=== PATIENT | male | born 1980 | race Caucasian/White ===

== ENCOUNTER 2022-06-20 01:38 | Emergency (ER) | payer OTHER, SELFPAY ==
[2022-06-20] VITALS (16 sets, daily range): BP systolic 107–150; BP diastolic 79–91; PULSE 81–92; RESP 16–18; TEMP 35.8; O2SAT 95–100
--- NOTE | ~2022-06-20 | CT_ITS ---
Non-contrast CT scan of the Abdomen and Pelvis Clinical indication: Left flank pain Technique: 2.5 mm axial scans were obtained through the abdomen and pelvis without intravenous or or al contrast. Dose reduction technique was used on this scan by utilizing automated exposure control a nd iterative reconstruction technique. The dose-length product (DLP) was 805.47 mGy-cm. Findings: Images through the lung bases reveal no abnormalities. Multiple bilateral nonobstructing renal stones are present. There is moderate left hydroureteronephro sis. There is a 5 mm stone at the distal left ureter, however the ureter itself measures 2 cm in diam eter dislocation (axial image 161). There is a 9 x 6 mm stone at the left UVJ, with Hounsfield units of 1800. There are several additional smaller stones also at the very distal left ureter/left UVJ abo ve the larger stone, measuring up to 4 mm in diameter each. The liver, spleen, pancreas, gallbladder, and adrenals appear normal. There is no aortic aneurysm. There is no evidence of bowel obstruction. Normal appendix. Images through the pelvis were performed. There is no evidence of ascites or lymphadenopathy. Punctat e stone noted within the right side of the urinary bladder. Prostate gland is mildly enlarged. Impression: Multiple stones in the distal left ureter/left UVJ, largest measuring 9 x 6 mm just at the left UVJ. Please see details above. Moderate left hydroureteronephrosis, with the ureter in particular being diffusely dilated. Multiple additional nonobstructing bilateral renal stones. Punctate urinary bladder stone. Reviewed, dictated and finalized at [facility]. Impression: Multiple stones in the distal left ureter/left UVJ, largest measuring 9 x 6 mm just at the left UVJ. Please see details above. Moderate left hydroureteronephrosis, with the ureter in particular being diffus cherrie dilated. Multiple additional nonobstructing bilateral renal stones. Punctate urinary bladder stone.
[2022-06-20 01:59] LABS: Basophils Percent Auto 0.4 % (0.2-1.2); Eosinophils Absolute Auto 0.2 K/mm3 (0-0.3); Eosinophils Percent Auto 1.7 % (0-4.4); Hematocrit 46.5 % (42.0-52.0); Hemoglobin 15.7 g/dL (14.0-18.0); Immature Granulocyte Absolute 0.03 K/mm3 (0.00-0.031); Immature Granulocyte Percent A 0.3 % (0-0.5); Lymphocytes Absolute Auto 2.65 K/mm3 (0.9-3.2); Lymphocytes Percent Auto 29.4 % (18.3-44.2); Mean Corpuscular HGB Conc 33.8 g/dl (32-36); Mean Corpuscular Volume 88.9 fl (80-100); Mean Platelet Volume 9.7 fl (7.4-10.4); Monocytes Absolute Auto 0.7 K/mm3 (0.1-0.6); Monocytes Percent Auto 7.9 % (2.6-8.5); Neutrophils Absolute Auto 5.4 K/mm3 (1.3-6.7); Neutrophils Percent Auto 60.3 % (45.5-73.1); Platelet Count Result 218 k/mm3 (150-375); Red Blood Count 5.23 M/mm3 (4.6-6.20); Red Cell Distribution Width 12.4 % (11.5-14.5)
[2022-06-20 02:04] LABS: Bacteria Urine None Seen /hpf; Non Pathogenic Casts 0-2; RBC Urine 21-50 /hpf (0-2); Squamous Epithelial Cell Urine None seen /hpf (Few)
[2022-06-20] MEDS: SODIUM CHLORIDE 0.9% IV 1,000 ML 999 ML IV CONT (02:35)
[2022-06-20] MEDS: ONDANSETRON INJ 4 MG/2 ML VIAL IV PUSH (02:35)
[2022-06-20] MEDS: HYDROmorphone HCL INJ (*CRX) 1 MG/ML SYR IV PUSH ×2 (02:36→03:52)
[2022-06-20 02:50] LABS: Appearance Urine Clear (Clear); Bilirubin Urine Negative (Negative); Blood Urine 2+ (Negative); Color Urine Yellow (Yellow); Glucose Urine UA Negative (Negative); Ketones Urine Negative (Negative); Leukocyte Esterase Ur Trace LEU/UL (Negative); Nitrate Urine Negative (Negative); Protein Urine Trace mg/dL (Negative); Specific Grav Ur 1.021 (1.001-1.035); Urobilinogen Urine 0.2 mg/dL (<2.0)
[2022-06-20 02:53] LABS: Add Urine Microscopic? YES
[2022-06-20 03:02] LABS: Alanine Aminotransferase 42 U/L (6-50); Albumin Level 4.8 g/dL (3.5-5.1); Alkaline Phosphatase 84 U/L (38-126); Anion Gap 6 mmol/L (8-16); Aspartate Amino Transferase 33 U/L (17-59); Bilirubin,Total 0.8 mg/dL (0.2-1.3); Blood Urea Nitrogen 17 mg/dL (9-20); Calcium 9.6 mg/dL (8.4-10.2); Carbon Dioxide 29 mmol/L (22-30); Chloride 105 mmol/L (98-107); Estimated CRCL calculation 96 ml/min; Estimated Glomerular Filt Rate > 60; Glucose 119 mg/dL (65-110); Potassium 3.8 mmol/L (3.4-5.0); Sodium 140 mmol/L (137-145)
--- NOTE | 2022-06-20 03:25 | ED.GENADULT ---
HPI - General Adult General Chief complaint: Urogenital-Male Stated complaint: In excrutiating pain from kidney stone Time Seen by Provider: 06/20/22 02:22 History of Present Illness HPI narrative: Patient 42-year-old gentleman who presents the emergency department with chief complaint of flank pain patient reports that he had lithotripsy done on the for a large stone. The patient states that tonight he started having worsening pain and reports it has been uncontrolled with p.o. pain medications at home. Patient reports he had some nausea with this the patient reports that its not improved by anything. Related Data Home Medications Medication Instructions Recorded Confirmed hydrocodone 5 mg-acetaminophen 325 tablet 06/20/22 mg tablet lisinopril 20 mg tablet 20 mg 06/20/22 metoprolol succinate 50 mg 50 mg PO 06/20/22 tablet,extended release 24 hr Allergies Allergy/AdvReac Type Severity Reaction Status Date / Time erythromycin base Allergy Unknown Verified 06/20/22 01:53 Review of Systems Review of Systems: A 10 system review of systems was completed on the patient and is negative except for what is stated in the HPI. Nursing and ancillary documentation was reviewed. Exam Narrative: GENERAL: Well-appearing, well-nourished, and in no acute distress. HEAD: Normocephalic, atraumatic. EYES: PERRLA and EOMI. ENT: Nares clear, no rhinorrhea or epistaxis. Mucous membranes moist. NECK: Supple. CHEST: Clear to auscultation. No respiratory distress. HEART: Regular rate and rhythm. No murmur heard. Normal peripheral pulses. ABDOMEN: Soft, nontender, nondistended, normal active bowel sounds. EXTREMITIES: Normal range of motion. No edema. SKIN: Warm, dry, no rash. NEURO: No focal deficits. Alert and oriented x3. PSYCH: Normal mood and affect. Course Vital Signs Vital signs: Vital Signs Temperature 35.8 C L 06/20/22 01:42 Pulse Rate 81 06/20/22 01:42 Respiratory Rate 18 06/20/22 01:42 Blood Pressure 150/91 H 06/20/22 01:42 Pulse Oximetry 100 06/20/22 01:42 Oxygen Delivery Room Air 06/20/22 01:42 Temperature 35.8 C L 06/20/22 01:42 Pulse Rate 92 06/20/22 03:39 Respiratory Rate 16 06/20/22 03:39 Blood Pressure 123/79 06/20/22 03:39 Pulse Oximetry 100 06/20/22 03:39 Oxygen Delivery Room Air 06/20/22 01:42 Medical Decision Making MDM Narrative Medical decision making narrative: Differential diagnosis includes UTI, obstructing stone, Plan showed evidence of a 0.9 cm UVJ stone with moderate to severe left hydronephrosis Patient's creatinine is 0.9 urinalysis showed 6-10 white blood cells and trace leukocyte esterase in the urine Urine culture has been sent. Patient will be given a prescription for [employer] prescription for Flomax and should follow-up with his urologist today or tomorrow Vital Signs Vital Signs: Vital Signs Temperature 35.8 C L 06/20/22 01:42 Pulse Rate 81 06/20/22 01:42 Respiratory Rate 18 06/20/22 01:42 Blood Pressure 150/91 H 06/20/22 01:42 Pulse Oximetry 100 06/20/22 01:42 Oxygen Delivery Room Air 06/20/22 01:42 Temperature 35.8 C L 06/20/22 01:42 Pulse Rate 92 06/20/22 03:39 Respiratory Rate 16 06/20/22 03:39 Blood Pressure 123/79 06/20/22 03:39 Pulse Oximetry 100 06/20/22 03:39 Oxygen Delivery Room Air 06/20/22 01:42 Lab Data 06/20/22 01:48 06/20/22 01:48 Labs: Lab Results 06/20/22 06/20/22 06/20/22 Range/Units 01:48 01:48 01:48 WBC 9.0 (4.5-10.0) K/mm3 RBC 5.23 (4.6-6.20) M/mm3 Hgb 15.7 (14.0-18.0) g/dL Hct 46.5 (42.0-52.0) % MCV 88.9 (80-100) fl MCH 30.0 (26-34) pg MCHC 33.8 (32-36) g/dl RDW 12.4 (11.5-14.5) % Plt Count 218 (150-375) k/mm3 MPV 9.7 (7.4-10.4) fl Immature Gran % (Auto) 0.3 (0-0.5) % Neut % (Auto) 60.3 (45.5-73.1) % Lymph % (Auto) 29.4 (18.3-44.2) % Camp % (Auto)
== END 2022-06-20 04:32 | disposition home or self-care (01) ==
PROVIDERS: Emergency Provider Emergency Medicine; PCP Family Medicine Sports Medicine
DX: N13.2 Hydronephrosis with renal and ureteral calculous obstruction (principal)
CPT/HCPCS: 36415; 74176; 80053; 81001; 85025; 87086; 87088; 96361; 96374; 96375; 96376; 99284; J1170; J2405; J7030

== ENCOUNTER 2024-09-03 13:09 | Emergency (ER) | payer BC, SELFPAY ==
[2024-09-03 13:25] VITALS: BP 126/76; PULSE 96; RESP 17; TEMP 36.7; O2SAT 99
--- NOTE | 2024-09-03 14:08 | ED.EAR ---
HPI - Ear Problem General Chief complaint: Ear Stated complaint: lt earache Time Seen by Provider: 09/03/24 13:40 Source: patient and RN notes reviewed Mode of arrival: ambulatory Limitations: no limitations History of Present Illness HPI Narrative: 44-year-old male does Express Care complaining of upper respiratory symptoms for approximately 4 days. Patient initially reported left sinus pressure, and mucopurulent discharge. Today patient woke up with worsening symptoms including worsening left sinus pressure, left ear pain, worsening discharge. Patient has been taking Zyrtec with some relief. Patient denies any fevers, body aches, chills, any other upper respiratory symptoms, chest pain, shortness of breath, nausea, vomiting, diarrhea, or any other symptoms. Related Data Home Medications ?Medication ?Instructions ?Recorded ?Confirmed ?Last Taken ?Type lisinopril 20 mg tablet 20 mg 06/20/22 Unknown History metoprolol succinate 50 mg 50 mg PO 06/20/22 Unknown History tablet,extended release 24 hr Allergies Allergy/AdvReac Type Severity Reaction Status Date / Time erythromycin base Allergy Unknown Verified 09/03/24 13:27 Review of Systems Review of Systems: CONSTITUTIONAL: Denies fever, chills, body aches, or sweats. EYES: Denies visual changes, redness, or discharge. ENT: Positive for rhinorrhea, congestion, otalgia. Negative for sore throat CARDIOVASCULAR: Denies chest pain, palpitations, or edema. RESPIRATORY: Negative for cough and dyspnea. GASTROINTESTINAL: Denies abdominal pain, nausea, vomiting, or diarrhea. GENITOURINARY: Denies dysuria or hematuria. SKIN: Denies rash or itching. MUSCULOSKELETAL: Denies back pain, joint pain, or myalgia. NEUROLOGIC: Denies headache, numbness, or weakness. PSYCHIATRIC: Denies anxiety or depression. All other systems reviewed are negative, except as documented in HPI. PMFSH Comments At the time of my signature, I reviewed and agree with the nursing past medical, surgical, social, and family history. There is no relevant family history pertinent to the patient complaint. Exam Narrative: GENERAL: This is a well-nourished, well-developed adult, in no apparent distress. They are non ill-appearing, nontoxic appearing. HEAD: normocephalic, atraumatic. EYES: Sclera clear/white. Vision is grossly intact. Conjunctiva normal bilaterally. Extraocular movements intact. EARS: External ears normal, auditory canals clear and without drainage, TMs without erythema or perforation. Hearing grossly intact. NOSE: External nose normal with no obvious nasal discharge, nasal turbinates erythematous with rhinorrhea. Left maxillary sinus tenderness to palpation. Transillumination of maxillary sinuses are abnormal. THROAT: Mucous membranes moist, posterior pharynx without redness or swelling, no exudate. Uvula is midline. Postnasal drip present. NECK: Neck supple, non-tender without lymphadenopathy, masses or thyromegaly. CARDIOVASCULAR: Regular rate and rhythm without murmurs, gallops, or rubs. RESPIRATORY: Clear to auscultation. Breath sounds equal bilaterally. No wheezes, rales, or rhonchi. SKIN: warm, Dry, intact with no suspicious lesions or rash, good texture and turgor. NEURO: awake, alert, and oriented to person, place and time. There were no obvious focal neurologic abnormalities. EXTREMITIES: No joint tenderness, effusion, or edema noted. BACK: Nontender without deformity. Course Course Emergency Course: Portions of this record may have been created with voice recognition software Level of Care: Express Care Visit Vital Signs Vital signs: Vital Signs Temperature 98.0 F 09/03/24 13:25 Pulse Rate 96 09/03/24 13:25 Respiratory Rate 17 09/03/24 13:25 Blood Pressure 126/76 09/03/24 13:25 Pulse Oximetry 99 09/03/24 13:25 Oxygen Delivery Room Air 09/03/24 13:25 Temperature 98.0 F 09/03/24 13:25 Pulse Rate 96 09/03/24 13:25 Respiratory Rate 17 09/03/24 13:25 Blood Pressure 126/76 09/03/24 13:25 Pulse Oximetry 99 09/03/24 13:25 Oxygen Delivery Room Air 09/03/24 13:25 Medical Decision Making MDM Narrative Medical decision making narrative: Given patient's suddenly worsened symptoms including left sinus pressure, mucopurulent discharge it is likely the patient has developed a bacterial sinusitis. Will treat with Augmentin. Discussed physical exam findings. Advised supportive measures and signs/symptoms to go to the ER. Pt is appropriate for outpt treatment and f/u. Differential Diagnosis Differential Diagnosis: Upper respiratory infection, viral infection, pharyngitis, sinusitis, your infection Vital Signs Vital Signs: Vital Signs Temperature 98.0 F 09/03/24 13:25 Pulse Rate 96 09/03/24 13:25 Respiratory Rate 17 09/03/24 13:25 Blood Pressure 126/76 09/03/24 13:25 Pulse Oximetry 99 09/03/24 13:25 Oxygen Delivery Room Air 09/03/24 13:25 Temperature 98.0 F 09/03/24 13:25 Pulse Rate 96 09/03/24 13:25 Respiratory Rate 17 09/03/24 13:25 Blood Pressure 126/76 09/03/24 13:25 Pulse Oximetry 99 09/03/24 13:25 Oxygen Delivery Room Air 09/03/24 13:25 Discharge Plan Discharge Clinical Impression: Sinusitis Qualifiers: Sinusitis location: unspecified location Chronicity: acute Recurrence: non-recurrent Qualified Code(s): J01.90 - Acute sinusitis, unspecified Patient Disposition: Home Condition: Stable Instructions: Antibiotic Form, Sinusitis (ED) Additional Instructions: Take the antibiotics as directed and complete the course even if you start to feel better. You may use a Neti pot saline rinse 3 times a day with lukewarm distilled water Continue to take Tylenol or Motrin for pain. Use a humidifier or vaporizer at night. Drink plenty of water. 8-10 glasses per day. Use flonase 2 times per day for 5 days then as needed Take mucinex 2 times per day and be sure to take with 8oz of water. Follow up with Primary provider in 3-5 days Please go to the ER if he develops any difficulty breathing, worsening symptoms, or any other concerns Patient Language: [place] Prescriptions: New amoxicillin-pot clavulanate 875-125 mg tablet 1 tablet PO Q12H 7 Days Qty: 14 0RF No Action metoprolol succinate 50 mg tablet extended release 24 hr 50 mg PO lisinopril 20 mg tablet 20 mg Follow-up/Referrals: Justin,MARILY Yao [Primary Care Provider] - Time of Disposition: 13:51
--- OUTSIDE RECORDS SUMMARY | 2024-09-03 14:13 | XMS_ITS | Patient Health Record ---
Author Organization [facility] Address [address] [place]. [address] [place] [id number] Care Team Providers Care Utility Arborist Name Role Phone Lambert Davila MD Primary Care Provider Unavailab sravan Won Perez Unavailable [phone] Allergies No Known Allergies Reason For Referral No Information Medications Medication SIG (Take, Route, Frequency, Duration) Notes Start Date End Date Status Metoprolol Succinate 25 MG Orally Twice a day Active Pepcid AC Active Lisinopril 20 MG Orally Once a day Active Social History Tobacco Use: Social History Observation Description Date Details (start date - stop date) Former Smoker NA - NA Tobacco Use/Smoking Question Answer Notes Are you a former smoker How long has it been since you last smoked? 1-3 months Section Notes: Reports to consume half of p ack of cigarettes for 20 years but has discontinued the use of tobacco over the past 3 months Reports to consume half of p ack of cigarettes for 15-20 years but has discontinued the use of tobacco over the past 5 months Reports to consume half of p ack of cigarettes for 20 years but has discontinued the use of tobacco over the past month. Problems Problem Type SNOMED Code ICD Code Onset Dates Problem Status W/U Status Risk Notes Problem 846402613 Nausea (R11.0) Active confirmed Problem 73194301 Heartburn (R12) Active confirmed He has experienced occasional heartburn over the past several months which has minimized with dietary and lifestyle modifications and Pepcid 20 mg twice a day. There has been no associated alarm features. Suspect GERD. Other considerations include cholelithiasis, nonulcer dyspepsia, or other. Problem [id number] Indigestion (K30) Active confirmed Plan Of Treatment No Information Insurance Providers Payer Name Payer Address Payer Phone Subscriber Number Group Number Insured Name Patient Relationship to Insured Coverage Start Date Coverage End Date [facility] Choice/ choice Plus [id number] [address] [place] [address] [id number] Luis Haynes Self - patient is the insured Medical (General) History Medical History History ICD Code Hypertension Surgical History Surgery Date(Month/Year)
== END 2024-09-03 13:53 | disposition home or self-care (01) ==
PROVIDERS: PCP Nurse Practitioner
DX: J01.90 Acute sinusitis, unspecified (principal)
CPT/HCPCS: 99213; G0463

== ENCOUNTER 2024-12-01 14:48 | Emergency (ER) | payer BC, SELFPAY ==
--- OUTSIDE RECORDS SUMMARY | 2024-12-01 14:51 | XMS_ITS | Encounter Summary ---
Author Organization [facility] Address [address] [place] [address] Care Team Providers Care Medication Coordinator Name Role Phone Shani Jones MD Unavailable [phone] Lambert Davila MD Primary Care Provider [phone] Luanne Anderson NP Primary Care Provider [phone] Encounter Details Date Type Department Care Team (Late st Contact Info) Description 11/12/2019 Abstract [facility] at [address] [address] Inocencio Mcgee MA Social History Tobacco Use Types Packs/Day Years Used Date Smoking Tobacco: Former Cigarettes 0.5 10 0 07/28/2005 - 07/29/2015 Smokeless Tobacco: Never Alcohol Use Standard Drinks/Week Comments Yes 0 (1 standard drink = 0.6 oz pur e alcohol) vodka about every 2 days. 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 No / Unsure 11/06/2019 3:50 PM CDT documented as of this encounter Functional Status * RETIRED Are you deaf or do you have serious difficulty hearing Answer Date of Assessment Author Status No 07/28/2018 12:56 PM CDT Acti ve * RETIRED Are you blind or do you have serious difficulty seeing, even when wearing glasses? Answer Date of Assessment Author Status No 07/28/2018 12:56 PM CDT Acti ve * Do you have serious difficulty walking or climbing stairs? Answer Date of Assessment Author Status No 07/28/2018 12:56 PM CDT Tao Johnson RN Active * Do you have difficulty dressing or bathing? Answer Date of Assessment Author Status No 07/28/2018 12:56 PM CDT Tao Johnson RN Active * Because of a physical, mental, or emotional condition, do you have difficulty doing errands alone such as visiting a doctor's office or shopping? Answer Date of Assessment Author Status No 07/28/2018 12:56 PM CDT Tao Johnson RN Active documented as of this encounter Mental Status * Because of a physical, mental, or emotional condition, do you have serious difficulty concentrating, remembering, or making decisions? 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 [address] [place] [address] documented as of this encounter Procedures Procedure Name Priority Date/Time Associated Diagnosis Comments CBC (OUTSIDE LAB) Routine 02/05/2020 COMPREHENSIVE METABOLIC PANEL Routine 02/05/2020 HEMOGLOBIN, GLYCOSYLATED Routine 02/05/2020 THYROID STIM HORMONE TSH Routine 02/05/2020 CBC (OUTSIDE LAB) Routine 09/05/2019 COMPREHENSIVE METABOLIC PANEL Routine 09/05/2019 LIPID PANEL Routine 09/05/2019 THYROID STIM HORMONE TSH Routine 09/05/2019 documented in this encounter Results * HEMOGLOBIN, GLYCOSYLATED (02/05/2020) HGB A1C 4.7 % 02/05/2020 [facility] Final Result * THYROID STIM HORMONE, TSH (02/05/2020) TSH 1.28 0.40 - 4.50 02/05/2020 [facility] Final Result * CBC (OUTSIDE LAB) (02/05/2020) WBC 9.3 HGB 17.1 HCT 50.1 PLT 275 02/05/2020 [facility]-OUTSIDE/ABSTRACTED Final Result * (ABNORMAL) COMPREHENSIVE METABOLIC PANEL (02/05/2020) SODIUM S/P/B 138 POTASSIUM S/P/B 4.1 CO2 27 CHLORIDE S/P/B 101 GLUCOSE 88 mg/dL CALCIUM S/P/B 10.5 BUN 13 CREATININE S/P/B 0.94 0.7 - 1.3 EGFR AFR. AMER. 119(A) <=90 EGFR NON-AFR. AMER. 102(A) <=90 ALKALINE PHOSPHATASE S/P/B 74 ALT 38 AST 23 BILIRUBIN TOTAL S/P/B 1.4 ALBUMIN S/P/B 5.3(A) 3.5 - 5.0 TOTAL PROTEIN S/P/B 8.1 02/05/2020 [facility] Edited Resul t - Final * CBC (OUTSIDE LAB) (09/05/2019) WBC 5.5 HGB 15.9 HCT 47.7 PLT 224 09/05/2019 [facility]-OUTSIDE/ABSTRACTED Final Result * THYROID STIM HORMONE, TSH (09/05/2019) TSH 1.28 0.40 - 4.50 09/05/2019 [facility] Final Result * (ABNORMAL) COMPREHENSIVE METABOLIC PANEL (09/05/2019) SODIUM S/P/B 139 POTASSIUM S/P/B 4.3 CO2 26 CHLORIDE S/P/B 102 GLUCOSE 87 mg/dL CALCIUM S/P/B 9.8 BUN 12 CREATININE S/P/B 0.95 0.7 - 1.3 EGFR AFR. AMER. 117(A) <=90 EGFR NON-AFR. AMER. 101(A) <=90 ALKALINE PHOSPHATASE S/P/B 72 ALT 35 AST 21 BILIRUBIN TOTAL S/P/B 0.9 ALBUMIN S/P/B 5.0 3.5 - 5.0 TOTAL PROTEIN S/P/B 7.0 GLOBULIN 2.0 09/05/2019 [facility] Final Result * LIPID PANEL (09/05/2019) CHOLESTEROL 180 HDL 49 TRIGLYCERIDES 144 NON HDL CHOLESTEROL 131 LDL (CALCULATED) 105 09/05/2019 [facility] Final Result documented in this encounter Visit Diagnoses Not on filedocumented in this encounter Additional Health Concerns Infection Onset Date Last Indicated Resolved Time COVID-19 Rule Out 09/09/2022 09/09/2022 09/09/2022 2:16 PM CDT COVID-19 Rule Out 02/25/2023 02/25/2023 02/25/2023 8:13 PM ROUGHING MILL OPERATOR COVID-19 Rule Out 05/10/2023 05/10/2023 05/10/2023 9:14 AM ROUGHING MILL OPERATOR COVID-19 Rule Out 10/12/2023 10/12/2023 10/12/2023 4:11 PM CDT Influenza - Seasonal 10/12/2023 10/12/2023 024 12:32 AM CDT documented as of this encounter Care Teams Medication Coordinator Relationship Specialty Start Date End Date Lambert Davila MD [address] [place] [address] PCP - General FAMILY MEDICINE SPORTS MEDICINE 11/06/19 06/27/22 Luanne Anderson NP [address] [place] [address] PCP - General NURSE PRACTITIONER 06/28/22 Shani Jones MD [facility]. [facility] [address] [place] [address] Denis Telephone Exchange Operator CARDIOVASCULAR DISEASE 10/24/18 documented as of this encounter
--- OUTSIDE RECORDS SUMMARY | 2024-12-01 14:51 | XMS_ITS | Patient Health Record ---
Author Organization [facility] Address [address] [place]. [address] [place] [address] Care Team Providers Care Gerontological Nurse Practitioner Name Role Phone Lambert Davila MD Primary Care Provider Unavailab sravan Won Perez Unavailable [phone] Allergies No Known Allergies Reason For Referral [...] Problem Status W/U Status Risk Notes Problem [id number] Nausea (R11.0) Active confirmed Problem 16475106 Heartburn (R12) Active confirmed He has experienced occasional heartburn over the past several months which has minimized with dietary and lifestyle modifications and Pepcid 20 mg twice a day. There has been no associated alarm features. Suspect GERD. Other considerations include cholelithiasis, nonulcer dyspepsia, or other. Problem [id number] Indigestion (K30) Active confirmed Plan Of Treatment No Information Insurance Providers Payer Name Payer Address Payer Phone Subscriber Number Group Number Insured Name Patient Relationship to Insured Coverage Start Date Coverage End Date [facility] Choice/ choice Plus E2 [address] [place] [phone] [id number] Luis Haynes Self - patient is the insured Medical (General) History Medical History History ICD Code Hypertension Surgical History Surgery Date(Month/Year)
--- OUTSIDE RECORDS SUMMARY | 2024-12-01 14:51 | XMS_ITS | Encounter Summary ---
Author Organization [facility] Address [address] [place] [address] Care Team Providers Care Tray Worker Name Role Phone Shani Jones MD Unavailable [phone] Luanne Anderson NP Primary Care Provider [phone] Reason for Referral * Imaging (Urgent) - Closed Specialty Diagnoses / Procedures Referred By Jan espinosa Referred To Contact RADIOLOGY Diagnoses Kidney lesion, tonawanda, right Liver lesion Right kidney mass Procedures MRI ABD WWO CON Luanne Anderson NP [address] [place] [address] Phone: tel: fax: Referral ID Status Reason Start Date Expiration Date Visits Re quested Visits Authorized [id number] Closed 07/04/2023 07/03/2024 1 1 Encounter Details Date Type Department Care Team (Late st Contact Info) Description 07/04/2023 MyChart Message Enc [facility] Family Medicine - [place] [address] [facility] [address] [place], [place] [address] Luanne Anderson NP [address] [place], [place] [id number] Ultrasound Social History Tobacco Use Types Packs/Day Years Used Date Smoking Tobacco: Former Cigarettes 0.5 10 0 07/28/2005 - 07/29/2015 Passive Smoke Exposure: Past Smokeless Tobacco: Never Alcohol Use Standard Drinks/Week Comments Yes 2 (1 standard drink = 0.6 oz pur e alcohol) PHQ-2 Answer Date Recorded Patient Health Questionnaire-2 Score 0 06/29/2023 Sex and Gender Information Value Date Recorded Sex Assigned at Male 05/28/2024 8:41 AM RECONNAISSANCE CREWMEMBER Legal Sex Male 7:53 PM CDT Gender Identity Male 08/08/2024 12:52 PM CDT Sexual Orientation Not on file 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 Answer Date of Assessment Author Status No 07/28/2018 12:56 PM Tao Christianson RN Active documented as of this encounter Mental Status * Because of a physical, mental, or emotional condition, do you have serious difficulty concentrating, remembering, or making decisions? Answer Entry Date Author Status No 07/28/2018 12:56 PM Tao Christianson RN Active documented in this encounter Plan of Treatment Upcoming Encounters Date Type Department Care Team (Late st Contact Info) Description 02/11/2025 9:20 AM RECONNAISSANCE CREWMEMBER Office Visit [facility] Family Medicine [facility] [address] [address] Luanne Anderson, QUYEN [address] [place] [address] 11/26/2025 1:00 PM CDT Office Visit [facility], [address] [place] [address] Shani Jones MD Three [facility]. [address] [place] [address] documented as of this encounter Results * MRI ABD WWO CON (07/21/2023 10:00 AM CDT) Anatomical Region Laterality Modality Abdomen Magnetic Resonan ce 07/22/2023 8:59 AM CDT Impressions 07/22/2023 9:17 AM CDT Impression: 1. A 2.8 cm complex cystic lesion is seen involving the upper pole the right kidney, correlating with the finding on the prior ultrasound. This finding is consistent with a Bosniak 2F lesion. Consider follow-up imaging in 6-12 months. 2. A 2.5 cm Bosniak 2 cyst is seen involving the upper pole of the left kidney. 3. There are 2 small lesions within the right hepatic lobe as described, favored to represent hemangiomas. The other lesions identified on the prior ultrasound are not well depicted on this exam. Referred By: LUANNE ANDERSON Interpreted By: Kenji Mcmahon MD, 07/22/2023 8:59 AM Narrative 07/22/2023 9:17 AM CDT Examination: MR abdomen without and with contrast. Clinical Information:Evaluate liver and right kidney lesions seen on comparison ultrasound. Comparison: Ultrasound 07/04/2023. CT 10/30/2020. Technique: Sequences: Multiplanar, multisequence MR images of the abdomen and pelvis were obtained before and after the administration of 15 mL of Dotarem. Findings: LIVER: Morphology: Normal. Hepatic steatosis: Absent. Iron overload: Absent. Focal liver lesion(s): A 1 cm T2 hyperintensity is identified within the subcapsular posterior right hepatic lobe (series 4 image 10). This finding fills with contrast on delayed images and is favored to represent a hemangioma. A similar lesion measuring 9 mm is identified in the subcapsular lateral right hepatic lobe (series 4 image 11), also possibly a hemangioma. The other lesions scattered throughout the liver identified on the prior ultrasound are not well depicted on this exam. Hepatic vasculature: Hepatic and portal veins are normally patent. GALLBLADDER AND BILIARY TREE: The gallbladder appears surgically absent. No biliary obstruction. PANCREAS: Unremarkable. No pancreatic ductal dilatation. SPLEEN: Normal. ADRENAL GLANDS: Normal. KIDNEYS: Enhance symmetrically with no definite solid enhancing mass lesion. A cystic slightly exophytic lesion is seen involving the upper pole the right kidney, correlating with the finding on prior ultrasound. This finding measures 2.6 x 2.5 x 2.8 cm and is predominantly T2 hyperintense, although there is intermediate to slightly hyperintense intrinsic T1 signal. Notably thickened presumed internal septations noted along the inferior aspect of the cyst measuring up to 3 mm (series 4 image 15. The comparison CT from October 2020 demonstrates internal hyperdensity. This finding along with the intrinsic T1 hyperintensity suggests a complex proteinaceous or hemorrhagic cyst. No internal enhancement is depicted with subtraction imaging. Given signal characteristics and thickened septations this finding is consistent with a Bosniak 2F lesion. A 2.5 cm slightly exophytic cystic lesion is seen involving the upper pole of the left kidney. This finding is T2 hyperintense and T1 hypointense with no internal enhancement. Very thin internal septations are noted (series 2 image 27), consistent with Bosniak 2 classification. GASTROINTESTINAL: Imaged large and small bowel are normal in caliber and wall thickness. FREE FLUID: None. VASCULATURE: The abdominal aorta is normal in caliber. LYMPH NODES: No abdominal retroperitoneal or mesenteric lymphadenopathy. LOWER CHEST: Heart is normal in size. The lung bases are clear. No pleural or pericardial effusions. BONES: No suspicious osseous lesions. Procedure Note Kenji Mcmahon MD - 07/22/2023 Examination: MR abdomen without and with contrast. Clinical Information:Evaluate liver and right kidney lesions seen oncomparison ultrasound. Comparison: Ultrasound 07/04/2023. CT 10/30/2020. Technique: Sequences: Multiplanar, multisequence MR images of the abdomen and pelviswere obtained before and after the administration of 15 mL of Dotarem. Findings: LIVER: Morphology: Normal. Hepatic steatosis: Absent. Iron overload: Absent. Focal liver lesion(s): A 1 cm T2 hyperintensity is identified within thesubcapsular posterior right hepatic lobe (series 4 image 10). This findingfills with contrast on delayed images and is favored to represent ahemangioma. A similar lesion measuring 9 mm is identified in thesubcapsular lateral right hepatic lobe (series 4 image 11), also possiblya hemangioma. The other lesions scattered throughout the liver identifiedon the prior ultrasound are not well depicted on this exam. Hepatic vasculature: Hepatic and portal veins are normally patent. GALLBLADDER AND BILIARY TREE: The gallbladder appears surgically absent.No biliary obstruction. PANCREAS: Unremarkable. No pancreatic ductal dilatation. SPLEEN: Normal. ADRENAL GLANDS: Normal. KIDNEYS: Enhance symmetrically with no definite solid enhancing masslesion. A cystic slightly exophytic lesion is seen involving the upperpole the right kidney, correlating with the finding on prior ultrasound.This finding measures 2.6 x 2.5 x 2.8 cm and is predominantly [id number], although there is intermediate to slightly hyperintenseintrinsic T1 signal. Notably thickened presumed internal septations notedalong the inferior aspect of the cyst measuring up to 3 mm (series 4 image15. The comparison CT from October 2020 demonstrates internal hyperdensity.This finding along with the intrinsic T1 hyperintensity suggests a complexproteinaceous or hemorrhagic cyst. No internal enhancement is depictedwith subtraction imaging. Given signal characteristics and thickenedseptations this finding is consistent with a Bosniak 2F lesion. A 2.5 cm slightly exophytic cystic lesion is seen involving the upper poleof the left kidney. This finding is T2 hyperintense and T1 hypointensewith no internal enhancement. Very thin internal septations are noted(series 2 image 27), consistent with Bosniak 2 classification. GASTROINTESTINAL: Imaged large and small bowel are normal in caliber andwall thickness. FREE FLUID: None. VASCULATURE: The abdominal aorta is normal in caliber. LYMPH NODES: No abdominal retroperitoneal or mesenteric lymphadenopathy. LOWER CHEST: Heart is normal in size. The lung bases are clear. No pleuralor pericardial effusions. BONES: No suspicious osseous lesions. Impression: 1. A 2.8 cm complex cystic lesion is seen involving the upper pole theright kidney, correlating with the finding on the prior ultrasound. Thisfinding is consistent with a Bosniak 2F lesion. Consider follow-up imagingin 6-12 months. 2. A 2.5 cm Bosniak 2 cyst is seen involving the upper pole of the leftkidney. 3. There are 2 small lesions within the right hepatic lobe as described,favored to represent hemangiomas. The other lesions identified on theprior ultrasound are not well depicted on this exam. Referred By: LUANNE ANDERSON Interpreted By: Kenji Mcmahon MD, 07/22/2023 8:59 AM us Luanne Anderson SENIOR INTERNET SALES CONSULTANT MRI Final Res ult documented in this encounter Visit Diagnoses Diagnosis Kidney lesion, tonawanda, right- Primary Unspecified disorder of kidney and ureter Liver lesion Other specified disorders of liver Right kidney mass Unspecified disorder of kidney and ureter Kidney lesion, tonawanda, right Unspecified disorder of kidney and ureter Liver lesion Other specified disorders of liver Right kidney mass Unspecified disorder of kidney and ureter documented in this encounter Additional Health Concerns Infection Onset Date Last Indicated Resolved Time COVID-19 Rule Out 10/12/2023 10/12/2023 10/12/2023 4:11 PM CDT Influenza - Seasonal 10/12/2023 10/12/2023 024 12:32 AM CDT documented as of this encounter Care Teams Tray Worker Relationship Specialty Start Date End Date Luanne Anderson NP [address] [place] [address] PCP - General NURSE PRACTITIONER 06/28/22 Shani Jones MD [facility] [address] [place] [address] Denis Touch Up Worker CARDIOVASCULAR DISEASE 10/24/18 documented as of this encounter
--- OUTSIDE RECORDS SUMMARY | 2024-12-01 14:51 | XMS_ITS | Encounter Summary ---
Author Organization [facility] Address [address] [place] [address] Care Team Providers Care Assistant Spa Director Name Role Phone Shani Jones MD Unavailable [phone] Luanne Anderson NP Primary Care Provider [phone] Encounter Details Date Type Department Care Team (Late st Contact Info) Description 01/20/2023 Crowd Factory Message Enc [facility] Family Medicine - [place] [address] [facility] [address] [place] [address] Luanne Anderson NP [address] [place], [place] [address] Ultrasound results Social History Tobacco Use Types Packs/Day Years Used Date Smoking Tobacco: Former Cigarettes 0.5 10 0 07/28/2005 - 07/29/2015 Passive Smoke Exposure: Past Smokeless Tobacco: Never Alcohol Use Standard Drinks/Week Comments Yes 0 (1 standard drink = 0.6 oz pur e alcohol) Vodka 1 or 2 on the weekends PHQ-2 Answer Date Recorded Patient Health Questionnaire-2 Score 0 09/09/2022 Sex and Gender Information Value Date Recorded Sex Assigned at Male 05/28/2024 8:41 AM BLENDING SUPERVISOR Legal Sex Male 7:53 PM CDT Gender Identity Male 08/08/2024 12:52 PM CDT Sexual Orientation Not on file 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 file Not on file [...] Date Author Status No 07/28/2018 12:56 PM ANNIET Tao Johnson RN Active documented in this encounter Plan of Treatment Upcoming Encounters Date Type Department Care Team (Late st Contact Info) Description 02/11/2025 9:20 AM BLENDING SUPERVISOR Office Visit [facility] Family Medicine - [place] [address] [facility] [address] [place] [address] Luanne Anderson NP [address] [place] [address] 11/26/2025 1:00 PM CDT Office Visit [facility] [address] [facility], [address] [place] [address] Shani Jones MD Three [facility]. [address] [place] [address] documented as of this encounter Visit Diagnoses Not on filedocumented in this encounter Additional Health Concerns Infection Onset Date Last Indicated Resolved Time COVID-19 Rule Out 02/25/2023 02/25/2023 02/25/2023 8:13 PM BLENDING SUPERVISOR COVID-19 Rule Out 05/10/2023 05/10/2023 05/10/2023 9:14 AM BLENDING SUPERVISOR COVID-19 Rule Out 10/12/2023 10/12/2023 10/12/2023 4:11 PM CDT Influenza - Seasonal 10/12/2023 10/12/2023 024 12:32 AM CDT documented as of this encounter Care Teams Assistant Spa Director Relationship Specialty Start Date End Date Luanne Anderson NP [address] [place] [address] PCP - General NURSE PRACTITIONER 06/28/22 Shani Jones MD [facility] [address] [place] [address] Denis Voltage Regulator Assembler CARDIOVASCULAR DISEASE 10/24/18 documented as of this encounter
--- OUTSIDE RECORDS SUMMARY | 2024-12-01 14:51 | XMS_ITS | Encounter Summary ---
Author Organization [facility] Address [address] [place] [address] Care Team Providers Care Renal Technician Name Role Phone Shani Jones MD Unavailable [phone] Luanne Anderson NP Primary Care Provider [phone] Encounter Details Date Type Department Care Team (Late st Contact Info) Description 07/24/2023 Ecrebot Message Enc [facility] Family Medicine - [place] [address] [facility] [address] [place] [address] Luanne Anderson NP [address] [place], [place] [address] MRI Results Social History Tobacco Use Types Packs/Day Years [...] Sex Assigned at Male 05/28/2024 8:41 AM SADDLE TREE STITCHER Legal Sex Male 7:53 PM CDT Gender Identity Male 08/08/2024 12:52 PM CDT Sexual Orientation Not on file 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, [address] [place], [place] [id number] Shani Jones MD Three [facility]. [address] [place], [place] [address] documented as of this encounter Visit Diagnoses Not on filedocumented in this encounter Additional Health Concerns Infection Onset Date Last Indicated Resolved Time COVID-19 Rule Out 10/12/2023 10/12/2023 10/12/2023 4:11 PM CDT Influenza - Seasonal 10/12/2023 10/12/2023 024 12:32 AM CDT documented as of this encounter Care Teams Renal Technician Relationship Specialty Start Date End Date Luanne Anderson NP [address] [place] [address] PCP - General NURSE PRACTITIONER 06/28/22 Shani Jones MD [facility] [address] [place] [address] Denis Nurses' Registry Director CARDIOVASCULAR DISEASE 10/24/18 documented as of this encounter
--- OUTSIDE RECORDS SUMMARY | 2024-12-01 14:51 | XMS_ITS | Encounter Summary ---
Author Organization [facility] Address [address] [place] [address] Care Team Providers Care Rn Womens Health Name Role Phone Shani Jones MD Unavailable [phone] Lambert Davila MD Primary Care Provider [phone] Luanne Anderson NP Primary Care Provider [phone] Encounter Details Date Type Department Care Team (Late st Contact Info) Description 06/06/2022 MyCXceriont Message Enc [facility] THREE [facility], [facility] [address] [place] [address] Shani Jones MD Three [facility]. [facility] [address] [place] [address] monitor Social History Tobacco Use Types Packs/Day Years Used Date Smoking Tobacco: Former Cigarettes 0.5 10 0 07/28/2005 - 07/29/2015 Smokeless Tobacco: Never Alcohol Use Standard Drinks/Week Comments Yes 0 (1 standard drink = 0.6 oz pur e alcohol) vodka about every 2 days. 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 [address] [place], [place] [id number] documented as of this encounter Visit Diagnoses Not on filedocumented in this encounter Additional Health Concerns Infection Onset Date Last Indicated Resolved Time COVID-19 Rule Out 09/09/2022 09/09/2022 09/09/2022 2:16 PM CDT COVID-19 Rule Out 02/25/2023 02/25/2023 02/25/2023 8:13 PM ACOUSTICAL ENGINEER COVID-19 Rule Out 05/10/2023 05/10/2023 05/10/2023 9:14 AM ACOUSTICAL ENGINEER COVID-19 Rule Out 10/12/2023 10/12/2023 10/12/2023 4:11 PM CDT Influenza - Seasonal 10/12/2023 10/12/2023 024 12:32 AM CDT documented as of this encounter Care Teams Rn Womens Health Relationship Specialty Start Date End Date Lambert Davila MD [facility] [place] [address] PCP - General FAMILY MEDICINE SPORTS MEDICINE 11/06/19 06/27/22 Luanne Anderson NP [address] [place] [address] PCP - General NURSE PRACTITIONER 06/28/22 Shani Jones MD [facility]. [facility] [address] [place] [address] Denis Meal Cook CARDIOVASCULAR DISEASE 10/24/18 documented as of this encounter
--- OUTSIDE RECORDS SUMMARY | 2024-12-01 14:51 | XMS_ITS | Encounter Summary ---
Author Organization [facility] Address [address] [place] [address] Care Team Providers Care Needle Valve Operator Name Role Phone Shani Jones MD Unavailable [phone] Luanne Anderson NP Primary Care Provider [phone] Encounter Details Date Type Department Care Team (Latest Contact Info) Description 11/07/2024 Results Follow-Up [facility] Family Medicine - [place] [address] [place], [place] [id number] Luanne Anderson, QUYEN [address] [place] [address] TSH W/REFLEX, COMPREHENSIVE METABOLIC PANEL, LIPID PANEL, CBC W/DIFF AUTOMATED Social History Tobacco Use Types Packs/Day Years Used Date Smoking Tobacco: Former Cigarettes 0.5 10 0 07/28/2005 - 07/29/2015 Passive Smoke Exposure: Past Smokeless Tobacco: Never Alcohol Use Standard Drinks/Week Comments Yes 2 (1 standard drink = 0.6 oz pur e alcohol) [facility] Utilities Answer Date Recorded In the past 12 months has e [employer], gas, oil, or water [employer] threatened to shut off services in your home? No 07/27/2024 Humiliation, Afraid, Rape, and Kick questionnair e Answer Date Recorded Within the last year, have y ou been afraid of your partner or ex-partner? No 07/27/2024 Within the last year, have y ou been humiliated or emotionally abused in other ways by your partner or ex-partner? No Within the last year, have y ou been kicked, hit, slapped, or otherwise physically hurt by your partner or ex-partner? No 07/27/2024 Within the last year, have y ou been raped or forced to have any kind of sexual activity by your partner or ex-partner? No 07/27/2024 Overall Financial Resource Strain (CARDIA) Answe r Date Recorded How hard is it for you to pa y for the very basics like food, housing, medical care, and heating? Not hard at all 07/27/2024 PHQ-2 Answer Date Recorded Patient Health Questionnaire-2 Score 0 04/02/2024 Hunger Vital Sign Answer Date Recorded Within the past 12 months, y ou worried that your food would run out before you got the money to buy more. Never true 07/28/19 25 Within the past 12 months, t he food you bought just didn't last and you didn't have money to get more. Never true 07/27/2024 PRAPARE - Transportation Answer Date Re corded In the past 12 months, has l ack of transportation kept you from medical appointments or from getting medications? No 05/2024 In the past 12 months, has l ack of transportation kept you from meetings, work, or from getting things needed for daily living? No 07/27/2024 Housing Stability Vital Sign Answer Corby e Recorded In the last 12 months, was t here a time when you were not able to pay the mortgage or rent on time? No 07/27/2024 In the past 12 months, how m any times have you moved where you were living? 0 07/27/2024 At any time in the past 12 m [facility], were you homeless or living in a jail (including now)? 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 Answer Date of Assessment Author Status No 07/27/2024 5:37 PM ANNIET Elena Corbin RN Active * Do you have serious difficulty walking or climbing stairs? Answer Date of Assessment Author Status No 07/27/2024 5:37 PM ANNIET Elena Corbin RN Active * Do you have difficulty dressing or bathing? Answer Date of Assessment Author Status No 07/27/2024 5:37 PM ANNIET Elena Corbin RN Active * Because of a physical, mental, or emotional condition, do you have difficulty doing errands alone such as visiting a doctor's office or shopping? Answer Date of Assessment Author Status No 07/27/2024 5:37 PM ANNIET Elena Corbin RN Active documented as of this encounter Mental Status * Because of a physical, mental, or emotional condition, do you have serious difficulty concentrating, remembering, or making decisions? Answer Entry Date Author Status No 07/27/2024 5:37 PM Elena Concepcion RN Active documented in this encounter Plan of Treatment Upcoming Encounters Date Type Department Care Team (Late st Contact Info) Description 02/11/2025 9:20 AM DREDGE OPERATOR SUPERVISOR Office Visit [facility] Family Medicine - [place] [address] [place] [address] Luanne Anderson NP [address] [place] [address] 11/26/2025 1:00 PM CDT Office Visit [facility], [address] [place], [place] [phone] Shani Jones MD [facility]. [address] [place], [place] [phone] documented as of this encounter Goals Goal Patient Goal Type Associated Problems Recent Progress Patient-Stated? Author Family - family caregiver with be involved in care transitions and discharge planning Lifestyle No Jessica Khan, LACING PRESSER documented as of this encounter Visit Diagnoses Not on filedocumented in this encounter Care Teams Needle Valve Operator Relationship Specialty Start Date End Date Luanne Anderson NP [address] [place] [address] PCP - General NURSE PRACTITIONER 06/28/22 Shani Jones MD [facility]. [facility] [address] [place] [address] Denis Malthouse Laborer CARDIOVASCULAR DISEASE 10/24/18 documented as of this encounter
[2024-12-01 14:54] VITALS: BP 137/90; PULSE 98; RESP 18; TEMP 36.6; O2SAT 99
--- NOTE | 2024-12-01 15:02 | ED_ITS ---
HPI - Skin/Abscess/Foreign Bdy General Chief complaint: Skin/Abscess/Foreign Body Stated complaint: Pain in the rear Time Seen by Provider: 12/01/24 15:00 Source: patient Mode of arrival: ambulatory Limitations: no limitations History of Present Illness HPI narrative: 44 yo M presents with itching, wetness, irritation around rectum for several weeks. Did have blood to toilet paper twice after having BM. Saw his PCP and was told he had anal fissure. Has been applying and diltiazem cream for the past 3 weeks. Continues to have itching and wet sensation to rectal area. Reports that he is cleaning and drying well. Has not had blood to to the paper since seen his primary care physician. Also reports pain to tailbone after riding bike 5 days ago. Patient reports normal bowel movements, no blood in stool. All systems reviewed and negative except as noted above. Related Data Home Medications ?Medication ?Instructions ?Recorded ?Confirmed ?Last Taken ?Type lisinopril 20 mg tablet 20 mg 06/20/22 Unknown Hist ory metoprolol succinate 50 mg 50 mg PO 06/20/22 Unknown History tablet,extended release 24 hr lisinopril 20 mg tablet mg 11/01/23 Unknown History metoprolol succinate 50 mg mg PO 11/01/23 Unknown His tory tablet,extended release 24 hr hydrochlorothiazide 12.5 mg tablet mg 12/01/24 Unknow n History white petrolatum 41 % topical topical 12/01/24 Unknow n History ointment (Aquaphor Original) Allergies Allergy/AdvReac Type Severity Reaction Status Date / Time erythromycin base Allergy Unknown Verified 12/01/24 14:54 PMFSH Comments At time of signature, agree with nursing past medical, surgical, social and family history. There is no relevant family history pertinent to the presenting complaint. Exam Narrative: GENERAL: This is a well-nourished, well-developed patient, in no apparent distress. HEAD: normocephalic, atraumatic. EYES: PERRL. Sclera clear/white. Vision is grossly intact. EARS: External ears normal NOSE: External nose normal NECK: Neck supple, non-tender without lymphadenopathy, masses or thyromegaly. CARDIOVASCULAR: Regular rate and rhythm without murmurs, gallops, or rubs. RESPIRATORY: Clear to auscultation. Breath sounds equal bilaterally. No wheezes, rales, or rhonchi. SKIN: warm, Dry, intact with no suspicious lesions or rash, good texture and turgor. There is no abscess to tailbone area. There is mild erythema, wet appearance around rectum. No swelling or fluctuance concerning for rectal abscess. There is no fissure noted. No hemorrhoids noted. No tenderness on palpation. NEURO: awake, alert, and oriented to person, place and time. There were no obvious focal neurologic abnormalities. EXTREMITIES: No joint tenderness, effusion, or edema noted. Course Course Level of Care: Express Care Visit Vital Signs Vital signs: Vital Signs Temperature 36.6 C 12/01/24 14:54 Pulse Rate 98 12/01/24 14:54 Respiratory Rate 18 12/01/24 14:54 Blood Pressure 137/90 12/01/24 14:54 Pulse Oximetry 99 12/01/24 14:54 Oxygen Delivery Room Air 12/01/24 14:54 Temperature 36.6 C 12/01/24 14:54 Pulse Rate 98 12/01/24 14:54 Respiratory Rate 18 12/01/24 14:54 Blood Pressure 137/90 12/01/24 14:54 Pulse Oximetry 99 12/01/24 14:54 Oxygen Delivery Room Air 12/01/24 14:54 Reviewed MDM - Skin/Abscess/Foreign Bdy MDM Narrative Medical decision making narrative: will treat rectal itching, wetness with nystatin, triamcinolone cream. Tailbone pain most likely related to bike seat. Normally does not ride bike. Will follow-up with his primary care physician if symptoms are not improving. Differential Diagnosis Differential diagnosis: Likely abscess of skin or subcutaneous tissue, dermatophytosis and contact dermatitis Discharge Plan Discharge Clinical Impression: Fungal infection of skin Patient Disposition: Home Condition: Stable Instructions: Yeast Infection (ED) Additional Instructions: Apply cream as prescribed. Keep clean and dry. Wash well with soap and water. See your primary care physician if not improving. Patient Language: Lithuanian Prescriptions: New nystatin-triamcinolone 100,000-0.1 unit/g-% cream 1 applic topical BID 10 Days Qty: 30 0RF Rx Instructions: Apply sparingly to affected area No Action metoprolol succinate 50 mg tablet extended release 24 hr PO lisinopril 20 mg tablet Aquaphor Original 41 % ointment TOPICAL hydrochlorothiazide 12.5 mg tablet metoprolol succinate 50 mg tablet extended release 24 hr 50 mg PO lisinopril 20 mg tablet 20 mg Follow-up/Referrals: Justin,MARILY Yao [Primary Care Provider, Unknown] Time of Disposition: 15:17
== END 2024-12-01 15:22 | disposition home or self-care (01) ==
PROVIDERS: Emergency Provider Nurse Practitioner Family; PCP Nurse Practitioner
DX: B36.9 Superficial mycosis, unspecified (principal); I10 Essential (primary) hypertension; G47.30 Sleep apnea, unspecified; K21.9 Gastro-esophageal reflux disease without esophagitis
CPT/HCPCS: 99213; G0463